=== PATIENT | female | born 1945 | race Two or more races ===

== ENCOUNTER 2025-01-09 06:12 | Day surgery (SDC) | payer OTHER ==
[2025-01-04 13:00] VITALS: BP 170/60
[~2025-01-09] VITALS: Ht 157.5 cm; Wt 59.0 kg
[~2025-01-09 06:12] MED LIST: ASA81 MG PO; CARDIZEM CD120 MG; CLARITIN10 M1 PO; HUMULIN 70100 UNIT/2; INDUR; IPRAT-ALBUT 0.5-3 ML IH; LUMIGAN2.5 M1; PEPCID AC10 MG PO; SINGULAIR10 MG PO; SYNTHROID50 MCG PO; VITAMINAS
[2025-01-09] MEDS ORDERED: EPINEPHRINE HCL/PF 1 MG/ML AMPUL IV ONE (12:00)
[2025-01-09] MEDS ORDERED: POVIDONE-IODINE 118 ML BOTT TOP ONE (12:00)
[2025-01-09] MEDS ORDERED: CEFAZOLIN SODIUM 1,000 MG VIAL IV ONE (12:00)
[2025-01-09] MEDS ORDERED: MORPHINE SULFATE 2 MG/ML CARTRIDGE IV ONE (13:00)
[2025-01-09] MEDS ORDERED: TRAM1TAB98 PO (13:35)
[2025-01-09] MEDS ORDERED: ENALAPRILAT DIHYDRATE 1.25 MG/ML VIAL IV ONE ×2 (13:40→14:15)
== END 2025-01-09 17:15 | disposition home or self-care (01) ==
LOC: CIR.AMB 06:12
PROVIDERS: ATTEND Obstetrics & Gynecology Gynecology
DX: N81.12 Cystocele, lateral (principal); N81.5 Vaginal enterocele